=== PATIENT | female | born 1955 | race Caucasian/White ===

== ENCOUNTER 2019-07-28 16:52 | Observation (INO) ==
[2019-07-28 17:16] LABS: Hematocrit 31.8 % (35.3-44.9); Hemoglobin 10.3 g/dL (11.5-15.4); Mean Corpuscular HGB Conc 32.4 g/dL (31.6-35.5); Mean Corpuscular Hemoglobin 27.4 pg (28.0-33.3); Mean Corpuscular Volume 84.6 fL (83.0-100.0); Mean Platelet Volume 9.8 fL (9.4-12.4); Platelet Count 236 K/mcL (140-400); Red Blood Count 3.76 M/mcL (3.82-4.97); Red Cell Distribution Width 17.8 % (11.5-14.5); White Blood Count 6.9 K/mcL (4.3-11.1)
[2019-07-28 17:37] LABS: INR 0.9; Prothrombin Time 10.7 Seconds (9.4-12.1)
[2019-07-28 17:39] LABS: Activated Partial Thrombo Time 25.4 Seconds (26.0-36.0)
[2019-07-28 17:42] LABS: Calcium 8.5 mg/dL (8.6-10.3); Potassium 3.4 mEq/L (3.5-5.1); Troponin I 0.05 ng/mL (< 0.04)
[2019-07-28] MEDS ORDERED: 0.9 % Sodium Chloride 1,000 ML IVC ONE (18:07)
[2019-07-28 18:23] LABS: Magnesium 2.1 mg/dL (1.6-2.6)
[2019-07-28 19:28] LABS: Alanine Aminotransferase 10 Units/L (7-52); Albumin 3.7 g/dL (3.5-5.7); Albumin/Globulin Ratio 1.4 (1.1-2.2); Alkaline Phosphatase 82 Units/L (34-104); Aspartate Amino Transferase 13 Units/L (13-39); Bilirubin,Direct 0.1 mg/dL (0.0-0.2); Bilirubin,Indirect 0.2 mg/dL (0.0-1.0); Bilirubin,Total 0.3 mg/dL (0.3-1.0); Globulin 2.6 g/dL (2.4-3.5); Total Protein 6.3 g/dL (6.4-8.9)
[2019-07-28 20:00] LABS: Bilirubin,Urine Small (Negative); Blood,Urine Negative (Negative); Clarity,Urine Cloudy (Clear); Color,Urine Dark Yellow (Yellow); Glucose,Urine (UA) Normal (Normal); Ketones,Urine Trace mg/dL (Negative); Leukocyte Esterase,Urine Moderate (Negative); Nitrite,Urine Negative (Negative); Protein,Urine 100 mg/dL (Neg-Trace); Urobilinogen,Urine Normal (Normal)
[2019-07-28 20:01] LABS: Squamous Epithelial Cell,Urine Moderate per lpf (None-Few); WBC,Urine TNTC per hpf (0-3)
[2019-07-28 20:05] LABS: Amphetamine Screen,Urine Negative ng/mL (Cutoff=1000); Barbiturate Screen,Urine Positive ng/mL (Cutoff=200); Benzodiazepines Screen,Urine Negative ng/mL (Cutoff=200); Cannabinoid Screen,Urine Negative ng/mL (Cutoff = 50); Cocaine Screen,Urine Negative ng/mL (Cutoff= 300); Opiate Screen,Urine Positive ng/mL (Cutoff=300); Phencyclidine Screen,Urine Negative ng/mL (Cutoff=25)
[2019-07-28 20:06] LABS: Bacteria,Urine Few per hpf (None-Few); Hyaline Casts,Urine None Seen per lpf (None-Few)
[2019-07-28] MEDS ORDERED: Potassium Chloride 40 MEQ, Lidocaine 1% 2 ML in 0.9 % Sodium Chloride 500 ML IVPB ONE (20:07)
[2019-07-28] MEDS ORDERED: cefTRIAXone 1,000 MG in Water for inj. (sterile) 10 ML IVP ONE (20:38)
[2019-07-28 20:57] LABS: VBG PH 7.31 pH Units (7.32-7.42)
[2019-07-28] MEDS ORDERED: Naloxone 0.4 MG/ML INJ IVP PRN (22:03)
[2019-07-28] MEDS ORDERED: Aspirin Enteric Coated 325 MG Tablet PO ONE (22:08)
[2019-07-28] MEDS ORDERED: cefTRIAXone 1,000 MG in 0.9 % Sodium Chloride Mini Bag 100 ML IVPB ONE (22:09)
[2019-07-28] MEDS ORDERED: Ringers Solution, Lactated 1,000 ML IVC SCH (22:15)
[2019-07-28 22:55] LABS: Ethanol < 10 mg/dL (Less than 10)
[2019-07-28] MEDS ORDERED: *HR* LORazepam 2 MG/ML VIAL IVP PRN ×3 (22:58)
[2019-07-28 23:08] LABS: Sodium, Urine 21.4 mEq/L
[2019-07-29 00:17] LABS: Basophils % 0.2 %; Hematocrit 30.7 % (35.3-44.9); Hemoglobin 9.8 g/dL (11.5-15.4); Immature Granulocytes % 0.2 % (0-4); Lymphocytes # 0.8 K/mcL (0.6-4.6); Lymphocytes % 8.8 %; Mean Corpuscular HGB Conc 31.9 g/dL (31.6-35.5); Mean Corpuscular Hemoglobin 26.8 pg (28.0-33.3); Mean Corpuscular Volume 83.9 fL (83.0-100.0); Mean Platelet Volume 10.2 fL (9.4-12.4); Monocytes % 10.7 %; Neutrophils # 7.4 K/mcL (1.6-8.9); Platelet Count 242 K/mcL (140-400); Red Blood Count 3.66 M/mcL (3.82-4.97); Red Cell Distribution Width 17.4 % (11.5-14.5); Segmented Neutrophils % 80.1 %; White Blood Count 9.3 K/mcL (4.3-11.1)
[2019-07-29 00:27] LABS: INR 0.9; Prothrombin Time 10.6 Seconds (9.4-12.1)
[2019-07-29 00:40] LABS: % Iron Saturation 4 % (15-50); Alanine Aminotransferase 26 Units/L (7-52); Albumin 3.7 g/dL (3.5-5.7); Albumin/Globulin Ratio 1.5 (1.1-2.2); Alkaline Phosphatase 83 Units/L (34-104); Aspartate Amino Transferase 35 Units/L (13-39); BUN/Creatinine Ratio 21 (6-26); Bilirubin,Total 0.2 mg/dL (0.3-1.0); Blood Urea Nitrogen 38 mg/dL (8-23); Calcium 8.3 mg/dL (8.6-10.3); Carbon Dioxide 21 mEq/L (23-29); Chloride 110 mEq/L (98-107); Globulin 2.5 g/dL (2.4-3.5); Glucose 131 mg/dL (70-105); Iron 17 mcg/dL (50-170); Osmolality,Calculated 301 (280-300); Phosphorous 4.9 mg/dL (2.7-4.5); Potassium 3.2 mEq/L (3.5-5.1); Sodium 140 mEq/L (136-145); Total Protein 6.2 g/dL (6.4-8.9); Transferrin 322 mg/dL (203-362); eGFR For African Americans 34 (> 60); eGFR For Non-African Americans 28 (> 60)
[2019-07-29 00:43] LABS: Troponin I 0.05 ng/mL (< 0.04)
[2019-07-29 01:02] LABS: Folate 8.6 ng/mL (3.0-16.0)
[2019-07-29 01:55] LABS: Ferritin < 8 ng/mL (10-120); Thyroid Stimulating Hormone 0.731 mcIU/mL (0.340-5.600)
[2019-07-29] MEDS: Thiamine (B-1) 100 MG TABLET PO SCH (08:03)
[2019-07-29] MEDS: Folic Acid 1 MG TABLET PO SCH (08:03)
[2019-07-29] MEDS: Vitamin B Complex/Vit C/Vit E 1 EACH TABLET PO SCH (08:03)
[2019-07-29 08:22] LABS: Estimated Average Glucose 131 mg/dl
[2019-07-29] MEDS ORDERED: cefTRIAXone 2,000 MG in Water for inj. (sterile) 10 ML IVP SCH (09:00)
[2019-07-29] MEDS: Ondansetron 4 MG/2 ML VIAL IVP PRN (16:39)
[2019-07-29] MEDS: *HR* Heparin 5,000 UNIT/ML VIAL SQ SCH (16:39)
[2019-07-29] MEDS ORDERED: Thiamine (B-1) 100 MG, Folic Acid 1 MG, MVI, adult with vitamin K 10 ML in 0.9 % Sodi... IVPB SCH (18:00)
[2019-07-29] MEDS: Ciprofloxacin/Dex *EAR* Susp 7.5 ML BOTTLE RIGHT EAR SCH (19:52)
[2019-07-29] MEDS: cefTRIAXone 2,000 MG in Water for inj. (sterile) 10 ML IVP SCH (22:32)
[2019-07-30] MEDS ORDERED: Acetaminophen 325 MG TABLET PO ONE (00:08)
[2019-07-30] MEDS: Ondansetron 4 MG/2 ML VIAL IVP PRN ×2 (00:29→12:21)
[2019-07-30] MEDS: *HR* Heparin 5,000 UNIT/ML VIAL SQ SCH ×2 (06:00→15:43)
[2019-07-30 06:25] LABS: Hematocrit 35.8 % (35.3-44.9); Hemoglobin 11.3 g/dL (11.5-15.4); Mean Corpuscular HGB Conc 31.6 g/dL (31.6-35.5); Mean Corpuscular Hemoglobin 26.3 pg (28.0-33.3); Mean Corpuscular Volume 83.4 fL (83.0-100.0); Mean Platelet Volume 9.9 fL (9.4-12.4); Platelet Count 266 K/mcL (140-400); Red Blood Count 4.29 M/mcL (3.82-4.97); Red Cell Distribution Width 17.7 % (11.5-14.5)
[2019-07-30 06:50] LABS: BUN/Creatinine Ratio 16 (6-26); Blood Urea Nitrogen 14 mg/dL (8-23); Calcium 8.4 mg/dL (8.6-10.3); Carbon Dioxide 24 mEq/L (23-29); Chloride 107 mEq/L (98-107); Glucose 99 mg/dL (70-105); Osmolality,Calculated 289 (280-300); Phosphorous 2.7 mg/dL (2.7-4.5); Potassium 2.6 mEq/L (3.5-5.1); Sodium 139 mEq/L (136-145); eGFR For African Americans > 60 (> 60); eGFR For Non-African Americans > 60 (> 60)
[2019-07-30] MEDS: Thiamine (B-1) 100 MG TABLET PO SCH (07:46)
[2019-07-30] MEDS: Vitamin B Complex/Vit C/Vit E 1 EACH TABLET PO SCH (07:46)
[2019-07-30] MEDS: Folic Acid 1 MG TABLET PO SCH (07:46)
[2019-07-30] MEDS: cefTRIAXone 2,000 MG in Water for inj. (sterile) 10 ML IVP SCH (07:46)
[2019-07-30] MEDS: Ciprofloxacin/Dex *EAR* Susp 7.5 ML BOTTLE RIGHT EAR SCH ×2 (07:47→20:28)
[2019-07-30] MEDS: Acetaminophen 325 MG TABLET PO SCH ×3 (12:58→23:44)
[2019-07-30] MEDS ORDERED: Acetaminophen 325 MG TABLET PO SCH (18:00)
[2019-07-31 02:26] LABS: BUN/Creatinine Ratio 17 (6-26); Blood Urea Nitrogen 14 mg/dL (8-23); Calcium 8.7 mg/dL (8.6-10.3); Carbon Dioxide 22 mEq/L (23-29); Chloride 107 mEq/L (98-107); Glucose 80 mg/dL (70-105); Osmolality,Calculated 283 (280-300); Potassium 3.2 mEq/L (3.5-5.1); Sodium 137 mEq/L (136-145); eGFR For African Americans > 60 (> 60); eGFR For Non-African Americans > 60 (> 60)
[2019-07-31] MEDS: *HR* Heparin 5,000 UNIT/ML VIAL SQ SCH (05:17)
[2019-07-31] MEDS: Acetaminophen 325 MG TABLET PO SCH ×2 (05:19→08:49)
[2019-07-31 07:01] VITALS: BP 131/71
[2019-07-31] MEDS: Thiamine (B-1) 100 MG TABLET PO SCH (07:52)
[2019-07-31] MEDS: Vitamin B Complex/Vit C/Vit E 1 EACH TABLET PO SCH (07:52)
[2019-07-31] MEDS: Folic Acid 1 MG TABLET PO SCH (07:52)
[2019-07-31] MEDS: cefTRIAXone 2,000 MG in Water for inj. (sterile) 10 ML IVP SCH (07:52)
[2019-07-31] MEDS: Ciprofloxacin/Dex *EAR* Susp 7.5 ML BOTTLE RIGHT EAR SCH (07:53)
[2019-07-31] MEDS: Ondansetron 4 MG/2 ML VIAL IVP PRN (08:49)
== END 2019-07-31 11:00 | disposition home or self-care (01) ==
LOC: EMEROOARM 16:52 → 3BNU 16:52
PROVIDERS: ADMIT Family Medicine; ATTEND Family Medicine

== ENCOUNTER 2019-12-14 16:34 | Inpatient (IN) ==
[2019-12-14 17:03] LABS: Hematocrit 15.8 % (35.3-44.9); Mean Corpuscular HGB Conc 29.1 g/dL (31.6-35.5); Mean Corpuscular Hemoglobin 21.1 pg (28.0-33.3); Mean Corpuscular Volume 72.5 fL (83.0-100.0); Mean Platelet Volume 9.1 fL (9.4-12.4); Platelet Count 353 K/mcL (140-400); Red Blood Count 2.18 M/mcL (3.82-4.97); Red Cell Distribution Width 18.9 % (11.5-14.5); White Blood Count 9.5 K/mcL (4.3-11.1)
[2019-12-14 17:10] LABS: INR 0.9; Prothrombin Time 10.7 Seconds (9.4-12.1)
[2019-12-14 17:12] LABS: Activated Partial Thrombo Time 18.8 Seconds (26.0-36.0)
[2019-12-14 17:21] LABS: Hemoglobin 4.6 g/dL (11.5-15.4)
[2019-12-14 17:30] LABS: BUN/Creatinine Ratio 16 (6-26); Blood Urea Nitrogen 31 mg/dL (8-23); Calcium 8.8 mg/dL (8.6-10.3); Carbon Dioxide 25 mEq/L (23-29); Chloride 107 mEq/L (98-107); Ethanol < 10 mg/dL (Less than 10); Glucose 115 mg/dL (70-105); Magnesium 2.3 mg/dL (1.6-2.6); Osmolality,Calculated 303 (280-300); Sodium 143 mEq/L (136-145); Troponin I 0.05 ng/mL (< 0.04); eGFR For African Americans 32 (> 60); eGFR For Non-African Americans 27 (> 60)
[2019-12-14 17:43] LABS: Creatine Kinase 6543 Units/L (30-223)
[2019-12-14 17:46] LABS: Amphetamine Screen,Urine Negative ng/mL (Cutoff=1000); Barbiturate Screen,Urine Negative ng/mL (Cutoff=200); Benzodiazepines Screen,Urine Negative ng/mL (Cutoff=200); Cannabinoid Screen,Urine Negative ng/mL (Cutoff = 50); Cocaine Screen,Urine Negative ng/mL (Cutoff= 300); Opiate Screen,Urine Negative ng/mL (Cutoff=300); Phencyclidine Screen,Urine Negative ng/mL (Cutoff=25)
[2019-12-14] MEDS ORDERED: 0.9 % Sodium Chloride 1,000 ML IVC ONE ×2 (17:57→18:04)
[2019-12-14] MEDS ORDERED: Potassium Chloride Elixir 20 MEQ/15 ML UDC PO ONE (18:03)
[2019-12-14 18:10] LABS: Basophils % 0.3 %; Hematocrit 15.7 % (35.3-44.9); Immature Granulocytes % 0.5 % (0-4); Lymphocytes # 0.9 K/mcL (0.6-4.6); Lymphocytes % 8.7 %; Mean Corpuscular Hemoglobin 20.4 pg (28.0-33.3); Mean Corpuscular Volume 72.7 fL (83.0-100.0); Mean Platelet Volume 9.6 fL (9.4-12.4); Monocytes # 1.2 K/mcL (0.0-1.3); Monocytes % 11.9 %; Neutrophils # 7.9 K/mcL (1.6-8.9); Nucleated Red Blood Cells 0.8 /100 WBC (0); Platelet Count 328 K/mcL (140-400); Red Blood Count 2.16 M/mcL (3.82-4.97); Segmented Neutrophils % 78.6 %; White Blood Count 10.1 K/mcL (4.3-11.1)
[2019-12-14 18:12] LABS: Hemoglobin 4.4 g/dL (11.5-15.4)
[2019-12-14 18:35] LABS: Anisocytosis 2+ (Not Present); Hypochromasia Present (Not Present); Microcytosis Present (Not Present); Ovalocytes 1+ (Not Present); Platelet Estimate Normal (Normal); Tear Drop Cells 1+ (Not Present)
[2019-12-14] MEDS ORDERED: Naloxone 0.4 MG/ML INJ IVP PRN ×2 (19:55→22:10)
[2019-12-14] MEDS: 0.9 % Sodium Chloride 1,000 ML IVC SCH (22:33)
[2019-12-14] MEDS ORDERED: Perflutren Lipid Microsphere 1.3 ML in 0.9 % Sodium Chloride 8.7 ML IVP PRN (22:37)
[2019-12-14 22:39] LABS: ABG Base Excess 0 mEq/L (-2 to 3); ABG HCO3 25 mEq/L (21-27); ABG Oxygen Saturation 92 % (95-98); ABG PCO2 37 mmHg (35-45); ABG PH 7.43 pH Units (7.32-7.45); ABG PO2 61 mmHg (85-104); ABG TCO2 26 mEq/L (20-26)
[2019-12-14] MEDS: Pantoprazole 40 MG in 0.9 % Sodium Chloride Mini Bag 100 ML IVC SCH (23:42)
[2019-12-15] LABS: Adenovirus Not Detected (Not Detect); Bordetella Pertussis Not Detected (Not Detect); Chlamydophila pneumoniae Not Detected (Not Detect); Coronavirus 229E Not Detected (Not Detect); Coronavirus HKU1 Not Detected (Not Detect); Coronavirus NL63 Not Detected (Not Detect); Coronavirus OC43 Not Detected (Not Detect); Human Metapneumovirus Not Detected (Not Detect); Human Rhinovirus/Enterovirus Not Detected (Not Detect); Influenza A Subtype 2009 H1 Not Detected (Not Detect); Influenza B Not Detected (Not Detect); Mycoplasma pneumoniae Not Detected (Not Detect); Parainfluenza Virus 1 Not Detected (Not Detect); Parainfluenza Virus 2 Not Detected (Not Detect); Parainfluenza Virus 3 Not Detected (Not Detect); Parainfluenza Virus 4 Not Detected (Not Detect); Respiratory Syncytial Virus Not Detected (Not Detect); SARS-CoV-2 Not Detected (Not Detect)
[2019-12-15] MEDS ORDERED: 0.9 % Sodium Chloride 500 ML IVC ONE (00:14)
[2019-12-15 01:44] LABS: Hematocrit 19.2 % (35.3-44.9)
[2019-12-15 01:55] LABS: Albumin 3.6 g/dL (3.5-5.7); Albumin/Globulin Ratio 1.6 (1.1-2.2); Bilirubin,Total 0.3 mg/dL (0.3-1.0); Calcium 8.4 mg/dL (8.6-10.3); Globulin 2.3 g/dL (2.4-3.5); Hemoglobin 5.8 g/dL (11.5-15.4); Potassium 2.9 mEq/L (3.5-5.1); Total Protein 5.9 g/dL (6.4-8.9)
[2019-12-15] MEDS: Pantoprazole 40 MG in 0.9 % Sodium Chloride Mini Bag 100 ML IVC SCH ×2 (04:46→09:15)
[2019-12-15 06:35] LABS: Estimated Average Glucose 126 mg/dl
[2019-12-15] MEDS ORDERED: Potassium Chloride 40 MEQ, Lidocaine 1% 2 ML in 0.9 % Sodium Chloride 500 ML IVPB ONE (07:22)
[2019-12-15 09:03] LABS: Basophils # 0.1 K/mcL (0.0-0.2); Basophils % 0.6 %; Eosinophils # 0.1 K/mcL (0.0-0.6); Eosinophils % 1.4 %; Hematocrit 26.4 % (35.3-44.9); Immature Granulocytes % 0.6 % (0-4); Mean Corpuscular HGB Conc 29.2 g/dL (31.6-35.5); Mean Corpuscular Hemoglobin 24.5 pg (28.0-33.3); Mean Platelet Volume 9.3 fL (9.4-12.4); Monocytes # 0.8 K/mcL (0.0-1.3); Monocytes % 9.2 %; Nucleated Red Blood Cells 0.9 /100 WBC (0); Platelet Count 303 K/mcL (140-400); Red Blood Count 3.14 M/mcL (3.82-4.97); Red Cell Distribution Width 22.6 % (11.5-14.5); Segmented Neutrophils % 77.2 %
[2019-12-15 09:10] LABS: INR 0.9; Prothrombin Time 10.4 Seconds (9.4-12.1)
[2019-12-15 09:36] LABS: Chol/HDL Ratio 1.5 (0-4.9)
[2019-12-15 09:42] LABS: Alanine Aminotransferase 48 Units/L (7-52); Albumin 3.3 g/dL (3.5-5.7); Albumin/Globulin Ratio 1.4 (1.1-2.2); Alkaline Phosphatase 57 Units/L (34-104); Aspartate Amino Transferase 76 Units/L (13-39); BUN/Creatinine Ratio 19 (6-26); Bilirubin,Total 0.3 mg/dL (0.3-1.0); Blood Urea Nitrogen 21 mg/dL (8-23); Calcium 8.1 mg/dL (8.6-10.3); Carbon Dioxide 20 mEq/L (23-29); Chloride 115 mEq/L (98-107); Globulin 2.4 g/dL (2.4-3.5); Glucose 85 mg/dL (70-105); Osmolality,Calculated 300 (280-300); Potassium 4.2 mEq/L (3.5-5.1); Sodium 144 mEq/L (136-145); Thyroid Stimulating Hormone 0.703 mcIU/mL (0.340-5.600); Total Protein 5.7 g/dL (6.4-8.9); eGFR For African Americans > 60 (> 60); eGFR For Non-African Americans 51 (> 60)
[2019-12-15 09:56] LABS: Hemoglobin 7.7 g/dL (11.5-15.4)
[2019-12-15 09:57] LABS: Mean Corpuscular Volume 84.1 fL (83.0-100.0)
[2019-12-15 10:30] LABS: Hematocrit 29.1 % (35.3-44.9); Hemoglobin 8.5 g/dL (11.5-15.4)
[2019-12-15 11:38] LABS: Bilirubin,Urine Negative (Negative); Blood,Urine Negative (Negative); Clarity,Urine Clear (Clear); Color,Urine Colorless (Yellow); Glucose,Urine (UA) Normal (Normal); Ketones,Urine Trace mg/dL (Negative); Leukocyte Esterase,Urine Negative (Negative); Nitrite,Urine Negative (Negative); PH,Urine 6.5 pH Units (5.0-8.0); Protein,Urine Trace mg/dL (Neg-Trace); Specific Gravity,Urine 1.014 (1.010-1.025); Urobilinogen,Urine Normal (Normal)
[2019-12-15 12:01] LABS: Sodium, Urine 83.8 mEq/L
[2019-12-15] MEDS: 0.9 % Sodium Chloride 1,000 ML IVC SCH ×4 (12:21→20:45)
[2019-12-15] MEDS ORDERED: Perflutren Lipid Microsphere 1.3 ML in 0.9 % Sodium Chloride 8.7 ML IVP PRN (14:42)
[2019-12-15] MEDS ORDERED: SODIUM CHLORIDE/NAHCO3/KCL/PEG 4,000 ML SOLN.RECON PO ONE (17:00)
[2019-12-15 18:13] LABS: Hematocrit 26.6 % (35.3-44.9)
[2019-12-15] MEDS: Pantoprazole 40 MG VIAL IVP SCH (18:25)
[2019-12-16 01:17] LABS: Hematocrit 26.1 % (35.3-44.9); Immature Granulocytes % 0.3 % (0-4); Lymphocytes % 18.3 %; Mean Corpuscular HGB Conc 30.7 g/dL (31.6-35.5); Mean Corpuscular Hemoglobin 24.7 pg (28.0-33.3); Mean Corpuscular Volume 80.6 fL (83.0-100.0); Mean Platelet Volume 9.1 fL (9.4-12.4); Platelet Count 270 K/mcL (140-400); Red Blood Count 3.24 M/mcL (3.82-4.97); Red Cell Distribution Width 21.4 % (11.5-14.5); Segmented Neutrophils % 65.2 %; White Blood Count 7.9 K/mcL (4.3-11.1)
[2019-12-16 01:18] LABS: Basophils # 0.1 K/mcL (0.0-0.2); Basophils % 0.6 %; Eosinophils # 0.4 K/mcL (0.0-0.6); Lymphocytes # 1.5 K/mcL (0.6-4.6); Monocytes # 0.8 K/mcL (0.0-1.3); Monocytes % 10.6 %; Neutrophils # 5.2 K/mcL (1.6-8.9); Nucleated Red Blood Cells 0.5 /100 WBC (0)
[2019-12-16 01:37] LABS: BUN/Creatinine Ratio 18 (6-26); Blood Urea Nitrogen 13 mg/dL (8-23); Calcium 7.8 mg/dL (8.6-10.3); Carbon Dioxide 20 mEq/L (23-29); Chloride 112 mEq/L (98-107); Glucose 80 mg/dL (70-105); Magnesium 1.5 mg/dL (1.6-2.6); Osmolality,Calculated 289 (280-300); Phosphorous 1.6 mg/dL (2.7-4.5); Potassium 3.5 mEq/L (3.5-5.1); Sodium 140 mEq/L (136-145); eGFR For African Americans > 60 (> 60); eGFR For Non-African Americans > 60 (> 60)
[2019-12-16] MEDS: 0.9 % Sodium Chloride 1,000 ML IVC SCH (03:51)
[2019-12-16] MEDS: Pantoprazole 40 MG VIAL IVP SCH ×2 (05:20→16:43)
[2019-12-16] MEDS: amLODIPine 5 MG TABLET PO SCH (07:22)
[2019-12-16] MEDS ORDERED: 0.9 % Sodium Chloride 500 ML IVC SCH (09:00)
[2019-12-17 01:54] LABS: Basophils # 0.1 K/mcL (0.0-0.2); Basophils % 0.5 %; Eosinophils # 0.8 K/mcL (0.0-0.6); Eosinophils % 7.9 %; Hematocrit 26.5 % (35.3-44.9); Hemoglobin 8.1 g/dL (11.5-15.4); Immature Granulocytes % 0.4 % (0-4); Lymphocytes # 1.4 K/mcL (0.6-4.6); Lymphocytes % 13.9 %; Mean Corpuscular HGB Conc 30.6 g/dL (31.6-35.5); Mean Corpuscular Hemoglobin 25.1 pg (28.0-33.3); Mean Platelet Volume 9.7 fL (9.4-12.4); Neutrophils # 6.9 K/mcL (1.6-8.9); Nucleated Red Blood Cells 0.5 /100 WBC (0); Platelet Count 256 K/mcL (140-400); Red Blood Count 3.23 M/mcL (3.82-4.97); Red Cell Distribution Width 21.7 % (11.5-14.5); Segmented Neutrophils % 67.3 %; White Blood Count 10.2 K/mcL (4.3-11.1)
[2019-12-17 02:06] LABS: BUN/Creatinine Ratio 17 (6-26); Blood Urea Nitrogen 13 mg/dL (8-23); Calcium 7.7 mg/dL (8.6-10.3); Carbon Dioxide 19 mEq/L (23-29); Chloride 113 mEq/L (98-107); Glucose 138 mg/dL (70-105); Magnesium 1.9 mg/dL (1.6-2.6); Osmolality,Calculated 294 (280-300); Phosphorous 2.3 mg/dL (2.7-4.5); Potassium 3.7 mEq/L (3.5-5.1); Sodium 141 mEq/L (136-145); eGFR For African Americans > 60 (> 60); eGFR For Non-African Americans > 60 (> 60)
[2019-12-17] MEDS: Pantoprazole 40 MG VIAL IVP SCH ×2 (05:33→16:14)
[2019-12-17] MEDS: amLODIPine 5 MG TABLET PO SCH (08:59)
[2019-12-17 16:40] VITALS: BP 136/79
== END 2019-12-17 18:41 | disposition home or self-care (01) | DRG 65 ==
LOC: EMEROOARM 16:34 → 2ANU 16:34 → SUATTDRO 12-15 14:00 → 2ANU 12-16 08:43
PROVIDERS: ADMIT Internal Medicine; ATTEND Internal Medicine
PROC: ENDOEBX (2019-12-16 14:10)
PROC: ENDOCBX (2019-12-16 14:10)